=== PATIENT | male | born 1955 | race Caucasian/White ===

== ENCOUNTER 2022-05-08 18:38 | Emergency (ER) | payer BC, OTHER ==
[~2022-05-08] VITALS: Ht 182.9 cm; Wt 70.3 kg
[2022-05-08 18:40] VITALS: BP 147/90
--- NOTE | 2022-05-08 18:40 | NUR ---
ARRIVAL AMBULATED TO ROOM. ALERT AND ORIENTED X3. GAIT STEADY. CHOKED ON CHICKEN FAJITA MEAT LAST PM @ 1930, SINCE THEN HE HAS BEEN UNABLE TO SWALLOW HIS SPIT, EAT, OR DRINK. HE IS BREATHING EFFECTIVELY AND IS ABLE TO COMMUNICATE PROPERLY. DENIES ANY PAIN. CURRENT BEDSIDE GLUCOSE 104. IS ON PLAVIX 75MG DAILY AND ASA 81MG DAILY LAST TAKEN YESTERDAY 05/07/22 IN THE AM. HAS HAD PREVIOUS ESOPHAGEAL STRICTURES THAT REQUIRED EGD WITH DILATION THE LAST ONE WAS DONE ABOUT [address] TOMLINSON[address] NOTIFIED DR. CRAMER. ORDERS FOLLOWED ORDERED.
[2022-05-08] MEDS ORDERED: GLUCAGEN ONE (19:14)
[2022-05-08 19:21] LABS: BASOPHIL % 0.4 % (0.0-0.2); EOSINOPHIL # 0.1 10^3/uL (0.0-0.2); EOSINOPHIL % 1.3 % (0.0-5.0); LYMPHOCYTES # 2.04 10^3/uL1 (1.0-4.8); LYMPHOCYTES % 22.1 % (24.0-44.0); MEAN CORP HGB 29.7 pg (26-34); MONOCYTES % 11.1 % (5.0-12.0); NEUTROPHILS % 64.9 % (41.0-85.0); PLATELET COUNT 165 10^3/uL (150-400); RED CELL DISTRIBUTION WIDTH 13.8 % (11.5-14.5)
[2022-05-08] MEDS ORDERED: GLUCAGEN IV ONE (19:30)
[2022-05-08 19:38] LABS: CARBON DIOXIDE 25.4 mmol/L (20.0-32)
[2022-05-08 19:47] VITALS: BP 135/81
--- NOTE | 2022-05-08 19:54 | DIREP ---
PROCEDURE:CHEST 1 VIEW COMPARISON:None. INDICATIONS:foreign body sensation FINDINGS: LUNGS/PLEURA:No significant pulmonary parenchymal abnormalities. No effusions. VASCULATURE:Normal. Unremarkable pulmonary vasculature. CARDIAC:Normal. No cardiac silhouette abnormality or cardiomegaly. MEDIASTINUM:Normal. No visible mass or adenopathy. BONES:Scoliosis and degenerative change. OTHER:Negative. CONCLUSION:No radiopaque foreign body seen. Dictated by: Serge Bernal MD on 05/08/2022 at 07:50 PM
--- NOTE | 2022-05-08 20:02 | NUR ---
Dr. Marilyn Bradley at bedside for consult.
--- NOTE | 2022-05-08 20:35 | ER.PDOC ---
General Chief Complaint: General Complaint Stated Complaint: FOREIGN BODY IN THROAT Time seen by MD: 19:00 Source: patient Exam Limitations: no limitations History of Present Illness Initial Comments 4 66-year-old male with a history of esophageal stricture, he ate fajita last night, felt like he was choking on it. Since then he feels like he is unable to tolerate p.o. Cannot take down solids or liquids. Feels like he has a hard time clearing his secretions. He is able to speak in full sentences. No chest pain or shortness of breath. He has had multiple esophageal dilation for the past Timing/Duration: 24 hours Severity: moderate Activities at Onset: other (eating) Prior Episodes/Possible Cause: frequent episodes Past Medical History Medical History: cardiac problems, diabetes Surgical History: other Social History Alcohol Use: occassionally Drug Use: none Review of Systems All Other Systems: Reviewed and Negative Physical Exam General Appearance: No Apparent Distress HEENT: Normal ENT Inspection Neck: Normal Inspection Respiratory: lungs clear, no respiratory distress Cardiovascular: Normal Peripheral Pulses, No Edema Gastrointestinal: Non Tender, Soft Extremities: Normal Inspection, No Pedal Edema Neurologic/Psychiatric: Alert, Oriented x 3 Skin: Normal Color Lymphatic: No Adenopathy Results/Orders Results/Orders Orders - NELIA CRAMER MD Cbc With Auto Diff (05/08/22 19:08) Comprehensive Metabolic Panel (05/08/22 19:08) Amylase (05/08/22 19:08) Lipase (05/08/22 19:08) PT (05/08/22 19:08) Glucagon (Glucagen) (05/08/22 19:30) Xr Chest 1v (05/08/22 19:08) Glucagon (Glucagen) (05/08/22 19:14) Xr Chest 2v (05/08/22 20:05) Vital Signs Date Time Temp Pulse Resp B/P (MAP) Pulse Ox O2 Delivery O2 Flow Rate FiO2 05/08/22 19:47 98.3 73 18 135/81 (99) 99 Room Air* 0 21 05/08/22 18:40 98.3 70 18 99 05/08/22 18:40 98.3 70 18 147/90 (109) 99 Room Air* 0 21 05/08/22 18:40 98.3 70 18 Laboratory Tests Test 05/08/22 18:56 05/08/22 18:58 POC Glucose 104 (70 - 110) White Blood Count 9.2 10^3/uL (4.5-11.0) Red Blood Count 5.18 10^6/uL (4.50-5.90) Hemoglobin 15.4 g/dL (13.9-16.3) Hematocrit 47.3 % (37.0-53.0) Mean Corpuscular Volume 91.3 fL (78-100) Mean Corpuscular Hemoglobin 29.7 pg (26-34) Mean Corpuscular Hemoglobin Concent 32.6 g/dL (33-36.5) L Red Cell Distribution Width 13.8 % (11.5-14.5) Platelet Count 165 10^3/uL (150-400) Mean Platelet Volume 9.8 fL (7.8-11.0) Neutrophils (%) (Auto) 64.9 % (41.0-85.0) Lymphocytes (%) (Auto) 22.1 % (24.0-44.0) L Monocytes (%) (Auto) 11.1 % (5.0-12.0) Neutrophils # (Auto) 6.0 10^3/uL (1.8-7.7) Lymphocytes # (Auto) 2.04 10^3/uL1 (1.0-4.8) Monocytes # (Auto) 1.0 10^3/uL (0.3-0.8) H Absolute Immature Granulocyte (auto 0.02 10^3 u/L (0-2) Absolute Eosinophils (auto) 0.1 10^3/uL (0.0-0.2) Immature Granulocytes % 0.20 % (0.00-0.50) Eosinophils % 1.3 % (0.0-5.0) Basophils % 0.4 % (0.0-0.2) H Basophils # 0.0 10^3/uL (0.0-0.1) Prothrombin Time 10.3 SEC (9.1-11.5) Prothrombin Time INR (Non-Therap) 1.0 Sodium Level 142 mmol/L (132-145) Potassium Level 3.6 mmol/L (3.6-5.2) Chloride Level 102.0 mmol/L (96-109) Carbon Dioxide Level 25.4 mmol/L (20.0-32) Anion Gap 18.2 Blood Urea Nitrogen 21 mg/dL (7-18) H Creatinine 1.24 mg/dL (0.59-1.40) Estimated GFR () 71.0 (>/=60) Est GFR (CKD-EPI)(Non-Afr Trinidadian) 58.7 (>/=60) BUN/Creatinine Ratio 16.0 Glucose Level 97 mg/dL (70-110) Calcium Level 9.8 mg/dL (8.4-10.5) Total Bilirubin 1.0 mg/dL (0.2-1.0) Aspartate Amino Transferase (AST) 42 U/L (0-35) H Alanine Aminotransferase (ALT) 55 U/L (12-78) Alkaline Phosphatase 78 U/L (50-136) Total Protein 8.4 g/dL (6.4-8.2) H Albumin 4.6 g/dL (3.4-5.0) Globulin 3.8 Albumin/Globulin Ratio 1.210 Amylase Level 67 U/L (25-115) Lipase 52 U/L (114-286) L Progress Progress After IV glucagon, the patient felt much better. He was able to tolerate p.o. liquids, nothing came back up. We got a repeat x-ray with Gastrografin shows no filling defect, contrast filling into the distal esophagus and stomach. He will follow-up with the surgeon ER DEPART Departure Time of Disposition: 20:35 Disposition: 01 HOME / SELF CARE / HOMELESS Impression: Primary Impression: Esophageal foreign body Condition: Improved Referrals: YANETH HARRISON (PCP) PRIMARY CARE PROVIDER Duration or Time Spent with Pa: NELIA Bales MD May 08, 2022 20:35
== END 2022-05-08 20:59 | disposition home or self-care (01) ==
LOC: ER 18:38
DX: T18.108A Unspecified foreign body in esophagus causing other injury, initial encounter (principal); E11.9 Type 2 diabetes mellitus without complications; F10.20 Alcohol dependence, uncomplicated; X58.XXXA Exposure to other specified factors, initial encounter; Y93.89 Activity, other specified; Y92.89 Other specified places as the place of occurrence of the external cause; Y99.8 Other external cause status
CPT/HCPCS: 99284; 96374; 71045; 71046; 80053; 85025; 82948; 36415; 82150; 83690; 85610; J1610

== ENCOUNTER → 2022-05-25 | Day surgery (SDC) | payer BC ==
[~2022-05-25] VITALS: Ht 182.9 cm; Wt 70.3 kg
[~2022-05-25] MED LIST: ASPI-667 PO; ATOR40TA PO; CLOP75TA52 PO; DIPRIVAN IV ONE; GABA300C PO; GLIP10TA13 PO; LACTATED RINGERS 1,000 ML IV ONE; METF10007 PO; METO-236 PO; NITR0.4T26 SL; NS 1000ML 1,000 ML IV SCH; PANT40TA6 PO; PIOG30TA27 PO; XYLOCAINE 2% 5ML VIAL ONE
[2022-05-25 10:15] VITALS: BP 118/78
[2022-05-25 14:12] VITALS: BP 133/80
[2022-05-25 14:37] VITALS: BP 129/70
--- NOTE | 2022-05-25 19:53 | OPH ---
DATE OF SURGERY: 05/25/2022 DICTATOR NAME: Oli LenaDavid BradleyDO PREOPERATIVE DIAGNOSIS: History of dysphagia with food impaction of the esophagus. POSTOPERATIVE DIAGNOSIS: Gastritis. SURGEON: Oli Bradley D.O. SILK SCREENER: OR staff. ANESTHESIA: General by Fran Sewell CRNA PROCEDURE PERFORMED: Esophagogastroduodenoscopy with biopsy. SPECIMENS: Gastric mucosa to path. ESTIMATED BLOOD LOSS: 7 mL. At the completion of the case, the counts were correct per OR staff. DESCRIPTION OF PROCEDURE: As follows, the patient is a very pleasant 66-year-old male known from previous evaluation. Prior to procedure, informed consent was obtained. At the time of procedure, he was taken to the operative suite and placed in supine position. Appropriate monitoring in place. He participated in the preprocedure safety checklist with timeout. He was repositioned into the left lateral position. With excellent sedation, EGD scope was advanced transorally with pneumoinsufflation distally in the second portion of duodenum. Once the duodenum was adequately visualized, camera was slowly withdrawn to facilitate visualization of the duodenal bulb and the distal stomach. Gastritis was identified and biopsies were obtained. The retroflexion maneuver was performed. Fundus is within normal limits. The cardia is essentially within normal limits. The patient possibly has a small sliding type hiatal hernia, but it was minimal. Camera was reduced. Stomach was decompressed. The scope was slowly withdrawn, distal esophagus is essentially normal with some slight redundancy. The mid and proximal esophagus are within normal limits. The vocal cords were visualized within normal limits. Camera was removed. Procedure discontinued. The patient tolerated this procedure well. There were no acute complications noted. Ana Proctor. Oli Bradley D.O. DR: ANTONIO/LOCO TID: [id number] RECEIPT: [id number] MILDRED
== END | disposition home or self-care (01) ==
LOC: SDC 10:05
PROVIDERS: ATTEND Surgery
DX: R13.10 Dysphagia, unspecified (principal); K29.30 Chronic superficial gastritis without bleeding; K44.9 Diaphragmatic hernia without obstruction or gangrene; I10 Essential (primary) hypertension; E78.5 Hyperlipidemia, unspecified; E11.9 Type 2 diabetes mellitus without complications; I25.10 Atherosclerotic heart disease of native coronary artery without angina pectoris; Z79.899 Other long term (current) drug therapy; Z98.890 Other specified postprocedural states; Z79.84 Long term (current) use of oral hypoglycemic drugs; Z95.5 Presence of coronary angioplasty implant and graft
CPT/HCPCS: 43239; 88305; 82948 ×2; J3490; J2001